=== PATIENT | male | born 1965 | race Caucasian/White ===

== ENCOUNTER 2018-06-01 16:40 | Emergency (ER) | payer MEDICAID ==
[~2018-06-01] VITALS: Ht 177.8 cm; Wt 140.6 kg
[2018-06-01 17:07] VITALS: BP 133/73
== END 2018-06-01 19:08 | disposition home or self-care (01) ==
LOC: ER 16:55
DX: M79.661 Pain in right lower leg (principal)
CPT/HCPCS: 93971